=== PATIENT | female | born 1975 | race Caucasian/White ===

== ENCOUNTER 2019-05-29 00:52 | Emergency (ER) | payer OTHER ==
[~2019-05-29] VITALS: Ht 160 cm; Wt 52.3 kg
[2019-05-29] MEDS ORDERED: OXYC10TA12 PO (01:22)
[2019-05-29] MEDS ORDERED: FENT50DI5 TD (01:22)
[2019-05-29] MEDS ORDERED: NEUR600T PO (01:22)
[2019-05-29] MEDS ORDERED: LEVO75TA4 PO (01:22)
[2019-05-29 01:48] VITALS: BP 121/76
== END 2019-05-29 01:55 | disposition short-term general hospital (02) ==
LOC: M ED 00:52
DX: T83.098A Other mechanical complication of other urinary catheter, initial encounter (principal); X58.XXXA Exposure to other specified factors, initial encounter; Y92.89 Other specified places as the place of occurrence of the external cause; C79.51 Secondary malignant neoplasm of bone; Z79.899 Other long term (current) drug therapy; Z88.1 Allergy status to other antibiotic agents; Z88.2 Allergy status to sulfonamides; Z88.8 Allergy status to other drugs, medicaments and biological substances